=== PATIENT | male | born 1970 | race African-American/Black ===

== ENCOUNTER 2020-09-26 01:08 | Emergency (ER) | payer MEDICAID ==
[~2020-09-26] VITALS: Ht 170.2 cm; Wt 86.0 kg
[2020-09-26] MEDS ORDERED: HYDROCODONE/ACETAMINOPHEN 5/325MG TABLET PO ONE (02:15)
[2020-09-26] MEDS ORDERED: HYDR-4346 MT ×2 (05:08→17:26)
[2020-09-26 05:20] VITALS: BP 140/92
[2020-09-26] MEDS ORDERED: IBUP-2029 MT (06:17)
== END 2020-09-26 05:32 | disposition home or self-care (01) ==
LOC: ER 01:08
DX: S22.42XA Multiple fractures of ribs, left side, initial encounter for closed fracture (principal); S52.092A Other fracture of upper end of left ulna, initial encounter for closed fracture; W17.89XA Other fall from one level to another, initial encounter; Y93.01 Activity, walking, marching and hiking; Y92.89 Other specified places as the place of occurrence of the external cause
CPT/HCPCS: 29105; 71101; 73080; 73090; 99284

== ENCOUNTER 2020-09-26 16:27 | Emergency (ER) | payer MEDICAID ==
[~2020-09-26] VITALS: Ht 170.2 cm; Wt 85.0 kg
[~2020-09-26 16:27] MED LIST: HYDR-4346 MT; IBUP-2029 MT
[2020-09-26 16:30] VITALS: BP 138/92
[2020-09-26] MEDS ORDERED: HYDR-4346 MT (17:26)
== END 2020-09-26 18:03 | disposition home or self-care (01) ==
LOC: ER 16:27
DX: Z76.0 Encounter for issue of repeat prescription (principal); S22.42XA Multiple fractures of ribs, left side, initial encounter for closed fracture; S52.092A Other fracture of upper end of left ulna, initial encounter for closed fracture; I10 Essential (primary) hypertension; W17.89XA Other fall from one level to another, initial encounter; Y93.K1 Activity, walking an animal; Y92.89 Other specified places as the place of occurrence of the external cause
CPT/HCPCS: 99283